=== PATIENT | female | born 1985 | race Caucasian/White ===

== ENCOUNTER 2017-07-24 08:55 | Emergency (ER) | payer SELFPAY ==
[~2017-07-24] VITALS: Ht 157.5 cm; Wt 43.0 kg
[2017-07-24 09:00] VITALS: BP 106/70; PULSE 70; RESP 16; TEMP 97.7; O2SAT 100
[2017-07-24 09:21] LABS: BLOOD, URINE LARGE (NEG); GLUCOSE,URINE NEG (NEG); KETONE, URINE TRACE mg/dL (NEG); NITRITE,URINE NEG (NEG); PH, URINE 5.5 (5.0-8.5)
[2017-07-24 09:29] LABS: METHOD OF COLLECTION CLEAN CATCH; URINE COLOR YELLOW (YELLW/STRAW)
[2017-07-24 09:30] LABS: BACTERIA, URINE MOD /hpf; COMMENT (UR) CULTURE INDICATED; CULTURE IF INDICATED CULTURE INDICATED; SQUAMOUS EPITHELIAL CELL URINE > 8 /hpf (0-5); WBC, URINE 15-19 /hpf (0-5)
[2017-07-24] MEDS ORDERED: KETOROLAC TROMETHAMINE 30 MG/ML (IVP) VIAL IV PUSH ONE (09:30)
[2017-07-24] MEDS ORDERED: SODIUM CHLOR 0.9% 1000 ML INJ 1,000 ML IV ONE (09:30)
[2017-07-24] MEDS ORDERED: SODIUM CHLORIDE 0.9% FLUSH 10 ML FLUSH IV FLUSH PRN (09:30)
[2017-07-24 09:45] VITALS: O2SAT 98
--- NOTE | 2017-07-24 09:51 | PD ---
HPI Chief Complaint: Dental Laboratory Assistant Problem/Complaint Time Seen by Provider: 09:19 Travel History International Travel<30 days: No Contact w/Intl Traveler<30days: No Traveled to known affect area: No History of Present Illness HPI Patient is a 32-year-old female presents emergency Department with suprapubic cramping associated with her menstrual cycle which started the past 2 days. Patient states that normal she has some cramping but this is been worse. States her flow is been heavier than usual as well. Denies any possibility for , denies any nausea or vomiting denies any diarrhea. States the pain is fairly constant cramping and moderate. Denies any vaginal discharge, denies any radiation of her pain. PFSH Past Medical History Arthritis: Yes (states dx of rheumatoid arthritis) Diminished Hearing: No Immunizations Current: Yes Tetanus Vaccination: > 5 Years Influenza Vaccination: No ?: Not LMP: NOW : 0 Past Surgical History Gynecologic Surgery: Yes (LEAP PROCEDURE IN 2002) Other Surgery: Yes (left breast cyst removal ) Social History Alcohol Use: Yes (ocassionally ) Tobacco Use: Yes (1 PPD/DAY) Substance Use: No Allergies-Medications (Allergen,Severity, Reaction): Coded Allergies: No Known Allergies (Verified Adverse Reaction, Unknown, 07/24/17) Reported Meds & Prescriptions Reported Meds & Active Scripts Active No Active Prescriptions or Reported Medications Review of Systems Except as stated in HPI: all other systems reviewed are Neg Physical Exam Narrative GENERAL: Well-developed well-nourished in no obvious distress SKIN: Focused skin assessment warm/dry. HEAD: Atraumatic. Normocephalic. EYES: Pupils equal and round. No scleral icterus. No injection or drainage. ENT: No nasal bleeding or discharge. Mucous membranes pink and cracked lips. NECK: Trachea midline. No JVD. CARDIOVASCULAR: Regular rate and rhythm. No murmur appreciated. RESPIRATORY: No accessory muscle use. Clear to auscultation. Breath sounds equal bilaterally. GASTROINTESTINAL: Abdomen soft, non-tender, nondistended. Hepatic and splenic margins not palpable. GENITOURINARY: Exam performed with female nurse bindery manager present all times, vaginal bleeding cervical os closed, no discharge, no bimanual tenderness no cervical motion tenderness. Grossly normal external genitalia. MUSCULOSKELETAL: No obvious deformities. No clubbing. No cyanosis. No edema. NEUROLOGICAL: Awake and alert. No obvious cranial nerve deficits. Motor grossly within normal limits. Normal speech. PSYCHIATRIC: Appropriate mood and affect; insight and judgment normal. Data Data Last Documented VS Vital Signs Date Time Temp Pulse Resp B/P (MAP) Pulse Ox O2 Delivery O2 Flow Rate FiO2 07/24/17 12:05 70 16 107/70 (82) 99 07/24/17 09:45 Room Air 07/24/17 09:00 97.7 Orders Orders Urinalysis - C+S If Indicated (07/24/17 09:07) Ed Urine Pregnancytest Poc (07/24/17 09:07) Basic Metabolic Panel (Bmp) (07/24/17 09:24) Complete Blood Count With Diff (07/24/17 09:24) Iv Access Insert/Monitor (07/24/17:24) Ecg Monitoring (07/24/17 09:24) Oximetry (07/24/17 09:24) Sodium Chloride 0.9% Flush (Ns Flush) (07/24/17 09:30) Wet Prep Profile (07/24/17 09:24) Gc And Chlamydia Pcr (07/24/17 09:24) Ketorolac Inj (Toradol Inj) (07/24/17 09:30) Sodium Chlor 0.9% 1000 Ml Inj (Ns 1000 M (07/24/17 09:30) Urine Culture (07/24/17 09:10) Ed Discharge Order (07/24/17 11:22) Labs Laboratory Tests Test 07/24/17 09:10 07/24/17 09:50 07/24/17 11:15 Urine Collection Type CLEAN CATCH Urine Color YELLOW Urine Turbidity CLEAR Urine pH 5.5 Urine Specific [place] 1.020 Urine Protein TRACE mg/dL Urine Glucose (UA) NEG mg/dL Urine Ketones TRACE mg/dL Urine Occult Blood LARGE Urine Nitrite NEG Urine Bilirubin NEG Urine Leukocyte Esterase SMALL Urine RBC 25-49 /hpf Urine WBC 15-19 /hpf Urine Squamous Epithelial Cells > 8 /hpf Urine Bacteria MOD /hpf Microscopic Urinalysis Comment CULTURE INDICATED Urine Collection Time 09:10 White Blood Count 9.4 TH/MM3 Red Blood Count 4.17 MIL/MM3 Hemoglobin 13.2 GM/DL Hematocrit 39.8 % Mean Corpuscular Volume 95.5 FL Mean Corpuscular Hemoglobin 31.7 PG Mean Corpuscular Hemoglobin Concent 33.2 % Red Cell Distribution Width 12.5 % Platelet Count 196 TH/MM3 Mean Platelet Volume 8.7 FL Neutrophils (%) (Auto) 68.6 % Lymphocytes (%) (Auto) 22.1 % Monocytes (%) (Auto) 6.2 % Eosinophils (%) (Auto) 2.5 % Basophils (%) (Auto) 0.6 % Neutrophils # (Auto) 6.4 TH/MM3 Lymphocytes # (Auto) 2.1 TH/MM3 Monocytes # (Auto) 0.6 TH/MM3 Eosinophils # (Auto) 0.2 TH/MM3 Basophils # (Auto) 0.1 TH/MM3 CBC Comment DIFF FINAL Differential Comment Blood Urea Nitrogen 7 MG/DL Creatinine 0.56 MG/DL Random Glucose 88 MG/DL Calcium Level 8.4 MG/DL Sodium Level 140 MEQ/L Potassium Level 3.3 MEQ/L Chloride Level 109 MEQ/L Carbon Dioxide Level 26.2 MEQ/L Anion Gap 5 MEQ/L Estimat Glomerular Filtration Rate 126 ML/MIN Clue Cells (Wet Prep) NONE SEEN Vaginal Trichomonas (Wet Prep) NONE SEEN Vaginal Yeast (Wet Prep) NONE SEEN Chlamydia trachomatis DNA (PCR) NOT DETECTED Neisseria gonorrhoeae DNA (PCR) NOT DETECTED MDM Medical Decision Making Medical Screen Exam Complete: Yes Emergency Medical Condition: Yes Differential Diagnosis Anemia, menstrual cramps, , torsion seems highly unlikely. Narrative Course Patient roomed emergency department, given Toradol and had complete relief her symptoms. Her exam is reassuring, labs reassuring. Discussed with the patient symptomatic management returned ED criteria follow-up with an INTERVENTIONAL SALE CONSULTANT. She is stable for discharge and no further workup is indicated at this time. Diagnosis Primary Impression: DUB (dysfunctional uterine bleeding) Additional Impression: PMDD (premenstrual dysphoric disorder) Patient Instructions: General Instructions, Pelvic Pain in Women (DC) Additional Instructions: Call your OBGYN for an appointment. Scripts No Active Prescriptions or Reported Meds Disposition: 01 DISCHARGE HOME Condition: Stable Tomi Guaman MD Jul 24, 2017 09:51
[2017-07-24 10:05] LABS: AUTOMATED NEUTROPHIL # 6.4 TH/MM3 (1.8-7.7); BASOPHIL # 0.1 TH/MM3 (0-0.2); BASOPHIL % 0.6 % (0.0-2.0); EOSINOPHIL # 0.2 TH/MM3 (0-0.4); EOSINOPHIL % 2.5 % (0.0-4.0); HEMATOCRIT 39.8 % (35.0-46.0); HEMO FLAGS DIFF FINAL; LYMPH % 22.1 % (9.0-44.0); LYMPHOCYTE # 2.1 TH/MM3 (1.0-4.8); MEAN CELL VOLUME 95.5 FL (80.0-100.0); MEAN CORPUSCULAR HEMOGLOBIN 31.7 PG (27.0-34.0); MEAN CORPUSCULAR HGB CONC 33.2 % (32.0-36.0); MONO % 6.2 % (0.0-8.0); NEUT % 68.6 % (16.0-70.0); PLATELET COUNT 196 TH/MM3 (150-450); RED BLOOD COUNT 4.17 MIL/MM3 (4.00-5.30); RED CELL DISTRIBUTION WIDTH 12.5 % (11.6-17.2); WHITE BLOOD COUNT 9.4 TH/MM3 (4.0-11.0)
[2017-07-24 10:06] LABS: POTASSIUM 3.3 MEQ/L (3.5-5.1)
[2017-07-24 10:10] LABS: BICARBONATE 26.2 MEQ/L (21.0-32.0)
[2017-07-24 12:05] VITALS: BP 107/70
[2017-07-24 15:02] LABS: CHLAMYDIA PCR NOT DETECTED (NOT DETECT); NEISSERIA PCR NOT DETECTED (NOT DETECT)
== END 2017-07-24 12:07 | disposition home or self-care (01) ==
LOC: PHED 08:55
DX: N93.8 Other specified abnormal uterine and vaginal bleeding (principal); F32.81 Premenstrual dysphoric disorder; F17.200 Nicotine dependence, unspecified, uncomplicated
CPT/HCPCS: 80048; 81001; 84703; 85025; 87086; 87210; 87491; 87591; 96361; 96374; 99284; J1885; J7030